=== PATIENT | male | born 1990 | race Caucasian/White ===

== ENCOUNTER 2018-03-20 18:24 | Emergency (ER) | payer OTHER ==
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
[2018-03-20] MEDS ORDERED: TDAP ADULT 0.5 ML INJ (BOOSTRIX) IM ONE (19:14)
[2018-03-20] MEDS ORDERED: CEPHALEXIN 500 MG CAP PO ONE (19:35)
[2018-03-20 19:55] VITALS: BP 123/94
== END 2018-03-20 19:53 | disposition home or self-care (01) ==
PROC: 0HQDXZZ Repair Right Lower Arm Skin, External Approach (ICD-10-PCS; principal; 2018-03-20)
DX: S51.011A Laceration without foreign body of right elbow, initial encounter (principal); S60.512A Abrasion of left hand, initial encounter; Z23 Encounter for immunization; Z87.891 Personal history of nicotine dependence; V18.2XXA Unspecified pedal cyclist injured in noncollision transport accident in nontraffic accident, initial encounter